=== PATIENT | male | born 1935 | race Caucasian/White ===

== ENCOUNTER 2017-04-02 20:53 | Emergency (ER) | payer MEDICARE, OTHER ==
[~2017-04-02] VITALS: Ht 175.3 cm; Wt 77.3 kg
[~2017-04-02 20:53] MED LIST: AMLO10TA2 PO; LOSA1TAB16 PO; OMEP-110 PO; TRAV5DRO OP
[2017-04-02] MEDS ORDERED: HYDROcodone/APAP 5/325 TABLET PO ONE (22:00)
[2017-04-02] MEDS ORDERED: HYDROcodone/APAP 5/325 TABLET ONE (22:16)
[2017-04-02 22:21] LABS: BLOOD UREA NITROGEN 29 mg/dL (7-18)
[2017-04-02 22:22] LABS: ASPARTATE AMINO TRANSFERASE 15 U/L (15-37)
[2017-04-02 23:55] VITALS: BP 121/61
== END 2017-04-02 23:57 | disposition home or self-care (01) ==
LOC: ED 23:47
DX: R10.9 Unspecified abdominal pain (principal); I10 Essential (primary) hypertension
CPT/HCPCS: 36415; 74176; 80053; 81003; 85025; 99285

== ENCOUNTER → 2020-01-26 | Outpatient (CLI) | payer MEDICARE ==
[~2020-01-26] MED LIST changes: -AMLO10TA2 PO; +AMLO10TA8 PO; +ASPI-496 PO; -LOSA1TAB16 PO; +LOSA1TAB19 PO; +VIT1CAPS42 PO
== END | disposition home or self-care (01) ==
LOC: CFH 12:55
PROVIDERS: ATTEND Internal Medicine Cardiovascular Disease
DX: I08.8 Other rheumatic multiple valve diseases (principal); I10 Essential (primary) hypertension
CPT/HCPCS: 93306